=== PATIENT | female | born 2000 | race Caucasian/White ===

== ENCOUNTER 2021-07-29 16:05 | Emergency (ER) | payer MEDICAID ==
[~2021-07-29] VITALS: Ht 162.6 cm; Wt 102.0 kg
[2021-07-29] MEDS ORDERED: LORAZEPAM 1MG TABLET PO ONE (17:00)
[2021-07-29 18:17] VITALS: BP 137/84
== END 2021-07-29 18:18 | disposition home or self-care (01) ==
LOC: ER 16:13
DX: F41.0 Panic disorder [episodic paroxysmal anxiety] (principal); R07.89 Other chest pain
CPT/HCPCS: 71045; 81025; 93005; 99283